=== PATIENT | female | born 1990 | race Caucasian/White ===

== ENCOUNTER 2017-10-30 01:25 | Emergency (ER) | payer MEDICAID ==
[~2017-10-30] VITALS: Ht 175.3 cm; Wt 98.4 kg
--- NOTE | 2017-10-30 01:25 | NUR ---
PT BIB [facility], PREBOOK. TAKEN TO CHAIR E
[2017-10-30 01:26] VITALS: BP 126/65
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
[2017-10-30 01:32] VITALS: BP 126/65
--- NOTE | 2017-10-30 01:32 | NUR ---
PATIENT BIB [facility] POLICE DEPT. PATIENT EXAMINED BY DR. TAYLOR. PATIENT MEDICALLY CLEARED AND RELEASED IN CUSTODY IN STABLE CONDITION. ORIGINAL PRE-BOOK FORM GIVEN TO [facility] OFFICER
== END 2017-10-30 01:32 ==
LOC: MED 01:25
DX: Z02.89 Encounter for other administrative examinations (principal); V49.9XXA Car occupant (driver) (passenger) injured in unspecified traffic accident, initial encounter; Y93.89 Activity, other specified; Y99.8 Other external cause status; Y92.488 Other paved roadways as the place of occurrence of the external cause
CPT/HCPCS: 99283